=== PATIENT | female | born 1960 | race Caucasian/White ===

== ENCOUNTER 2016-10-07 12:17 | Inpatient (IN) ==
[2016-10-07] MEDS ORDERED: NALOXONE 0.4 MG/ML VIAL IV PRN (15:46)
[2016-10-07] MEDS: LEVOFLOXACIN INJ 500 MG in PREMIX 1 EACH IV SCH (16:26)
[2016-10-07] MEDS: DEXTROSE 5% LACTATED RINGERS 1,000 ML IV SCH (16:26)
[2016-10-07] MEDS: metroNIDAZOLE INJ 500 MG in PREMIX 1 EACH IV SCH (16:26)
[2016-10-07] MEDS: MORPHINE PCA 30 MG/30 ML SYRINGE IV SCH (16:49)
[2016-10-07] MEDS: ATORVASTATIN 10 MG TABLET PO SCH (21:08)
[2016-10-07] MEDS: METOPROLOL TARTRATE 25 MG TABLET PO SCH (21:08)
[2016-10-08] MEDS: metroNIDAZOLE INJ 500 MG in PREMIX 1 EACH IV SCH ×3 (02:22→16:55)
[2016-10-08] MEDS: DEXTROSE 5% LACTATED RINGERS 1,000 ML IV SCH ×2 (02:22→08:34)
[2016-10-08 06:18] LABS: Basophils % 0.1 % (0.0-0.8); Hematocrit 35.3 VOL% (35.7-47.0); Immature Granulocytes % 0.3 %; Immature Granulocytes Absolute 0.04 #; Lymphocytes # 1.1 10*3/uL (1.4-4.0); Lymphocytes % 9.3 % (21.3-54.2); Mean Corpuscular HGB Conc 31.2 GM/DL (32-36); Mean Corpuscular Hemoglobin 28 PG (27-34); Mean Corpuscular Volume 90.7 FL (87-102); Mean Platelet Volume 9.8 FL (9.6-12.0); Monocytes # 0.8 10*3/uL (0.11-0.8); Monocytes % 6.8 % (1.7-12.7); Neutrophils # 10.3 10*3/uL (1.4-7.4); Neutrophils % 83.5 % (38.7-73.9); Platelet Count 243 10*3/uL (130-400); Red Blood Count 3.89 10*6/uL (3.8-5.5); Red Cell Distribution Width 14.6 % (9.3-17.3); White Blood Count 12.3 10*3/uL (4.5-13.71)
[2016-10-08 06:53] LABS: Bilirubin,Total 0.6 MG/DL (0.2-1.0); Calcium 8.7 MG/DL (8.5-10.1); Osmolality,Calculated 289.7 MOS/KG (273-304); Potassium 4.2 MMOL/L (3.5-5.1); Total Protein 6.3 G/DL (6.4-8.3)
[2016-10-08] MEDS: METOPROLOL TARTRATE 25 MG TABLET PO SCH ×2 (08:33→21:27)
[2016-10-08] MEDS: ESCITALOPRAM 10 MG TABLET PO SCH (08:33)
[2016-10-08] MEDS: PANTOPRAZOLE 40 MG TABLET PO SCH (08:33)
--- NOTE | 2016-10-08 13:36 | Event Note ---
This note is a late entry. I saw the patient this morning. Her pain is controlled with the ACCORDION TUNER. She has had stable vital signs and has no chest pain or shortness of breath. Her TAMMIE drainage has no bowel movement and we will get her up today and remove her William catheter. She possibly will be ready for discharge by tomorrow. Her lab work looks good.
[2016-10-08] MEDS: LEVOFLOXACIN INJ 500 MG in PREMIX 1 EACH IV SCH (15:26)
[2016-10-08] MEDS: MORPHINE PCA 30 MG/30 ML SYRINGE IV SCH (15:28)
[2016-10-08] MEDS: ONDANSETRON 4 MG/2 ML VIAL IV PRN (17:58)
[2016-10-08] MEDS: ATORVASTATIN 10 MG TABLET PO SCH (21:27)
[2016-10-08] MEDS: DESITIN 4OZ/NYSTATIN 15 GRAM MIXTURE PASTE TOP SCH (21:27)
[2016-10-09] MEDS: metroNIDAZOLE INJ 500 MG in PREMIX 1 EACH IV SCH ×3 (02:00→17:03)
[2016-10-09] MEDS: DEXTROSE 5% LACTATED RINGERS 1,000 ML IV SCH ×2 (02:02→08:02)
[2016-10-09] MEDS: METOPROLOL TARTRATE 25 MG TABLET PO SCH ×2 (09:08→20:29)
[2016-10-09] MEDS: ESCITALOPRAM 10 MG TABLET PO SCH (09:08)
[2016-10-09] MEDS: PANTOPRAZOLE 40 MG TABLET PO SCH (09:08)
[2016-10-09] MEDS: ONDANSETRON 4 MG/2 ML VIAL IV PRN (09:08)
[2016-10-09] MEDS: DESITIN 4OZ/NYSTATIN 15 GRAM MIXTURE PASTE TOP SCH ×2 (09:12→20:29)
--- NOTE | 2016-10-09 11:07 | Event Note ---
she has had some nausea but otherwise feels pretty well. Her pain is been controlled with a RESEARCH AND EVALUATION MANAGER.. This is made more significant because of her morbid obesity. She has been up out of bed so to get her up more. She is afebrile with stable vital signs. There is no bile in her TAMMIE drain. Maybe she will be ready for discharge by tomorrow.
[2016-10-09] MEDS: LEVOFLOXACIN INJ 500 MG in PREMIX 1 EACH IV SCH (17:01)
[2016-10-09] MEDS: MORPHINE PCA 30 MG/30 ML SYRINGE IV SCH (17:03)
[2016-10-09] MEDS: ATORVASTATIN 10 MG TABLET PO SCH (20:29)
[2016-10-10] MEDS: metroNIDAZOLE INJ 500 MG in PREMIX 1 EACH IV SCH ×2 (01:19→10:14)
[2016-10-10] MEDS: DEXTROSE 5% LACTATED RINGERS 1,000 ML IV SCH (01:19)
--- NOTE | 2016-10-10 09:48 | Event Note ---
She feels well postoperative day #3 from a very complex open cholecystectomy. She has no signs of any complications. She is afebrile with stable vital signs and her pain is been well-controlled and she no longer needs the BURLAP WORKER morphine. Her abdomen is benign and her incision looks good. There is no bile in her TAMMIE drain which has minimal output. We will discontinue the drain. We will discharge her home today with plans to follow-up in my office in about one week. Wound care and discharge instructions were given.
--- NOTE | 2016-10-10 09:51 | Discharge Summary ---
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 We placed a TAMMIE drain after the open cholecystectomy and she is been admitted and is had no bile or enteric contents in the drain. She has done well despite her extensive surgery and morbid obesity. She's had no wound problems and no signs of infection. Pain is now controlled to a point where we can remove the drain and discharge her home. We will follow her up in the office in one week. She is to call if she has any problems in the meantime. - Time spent with patient Time with patient DS: Greater than 30 minutes Specialty Discharge - Follow Up or Referrals Follow up with: Duc Shore III., MD [Physician] - 1 Week Discharge Plan - Discharge Data Disposition: Disch To Home/Self Care Condition at Discharge: Stable Discharge Diet: advance to your usual diet Activity: resume usual activities as tolerated - Discharge Medications No Action Atorvastatin [Lipitor] 10 mg PO BEDTIME #30 tablet Metoprolol Tartrate Tab [Lopressor Tab] 25 mg PO BID #60 tablet Pantoprazole Tab [Protonix Tab] 40 mg PO DAILY #30 tablet Aspirin [Ecotrin] 81 mg PO DAILY #30 tablet. Escitalopram [Lexapro] 20 mg PO DAILY - Follow Up or Referral Follow Up: Duc Shore III., MD [Physician] - 1 Week - Forms/Instructions Instructions: Open Cholecystectomy (DC) Exam - Constitutional Vitals: Period Temp Pulse Resp BP Sys/Anaya Pulse Ox Last 24 Hr 98.0 F-98.3 F 66-90 18-20 109-139/63-81 91-95 DS: Provider Date of admission: 10/07/16 12:41 Primary care physician: . No PCP Attending physician on admission: Duc Shore III., Discharging clinician: Duc Shore III.,
[2016-10-10] MEDS: PANTOPRAZOLE 40 MG TABLET PO SCH (10:10)
[2016-10-10] MEDS: METOPROLOL TARTRATE 25 MG TABLET PO SCH (10:11)
[2016-10-10] MEDS: ESCITALOPRAM 10 MG TABLET PO SCH (10:11)
[2016-10-10] MEDS: DESITIN 4OZ/NYSTATIN 15 GRAM MIXTURE PASTE TOP SCH (10:14)
[2016-10-10 11:44] VITALS: BP 107/52
== END 2016-10-10 12:57 | disposition home or self-care (01) | DRG 445 ==
LOC: N.5E 12:41
PROVIDERS: ADMIT Surgery; ATTEND Surgery